=== PATIENT | female | born 1950 | race Caucasian/White ===

== ENCOUNTER → 2018-08-02 | Day surgery (SDC) | payer OTHER, MEDICAID ==
[~2018-08-02] MED LIST: ADVAIR 500-501 EACH INH; ALBUTEROL2.5 MG/31 INH; AMBIEN 10 MG TA10 MG; BENADRYL25 MG PO; CALCIUM MAGNES1 EACH PO; CLARITIN10 MG PO; CLEARLAX17 GM PO; FLEXERIL PO; INCRUSE ELLI62.5 MCG INH; K-DUR 20 MEQ T20 MEQ PO; LEVOXYL125 MCG PO; LOSARTAN-HCTZ1 EACH PO; LOVASTAT20 PO; MAXAIR AUTOHALE14 G1 INH; METAMUCIL1 EAC1 PO; MULTI VITAMIN1 EACH PO; PREMARIN0.3 MG PO; PROAIR RESPICL90 MCG INH; PROTONIX40 M2 PO; SINGULAIR 10 MG10 M1 PO; SPIRIVA INH; SYMBICORT160 MCG/4. INH; VERAPAMIL ER300 MG PO; VERAPAMIL HCL240 M1 PO; VITAMIN D1000 UNI1 PO; ZYRTEC10 M2; [UNRECOGNIZED DRUG - OTHER]; [UNRECOGNIZED DRUG - OTHER] PO; [UNRECOGNIZED DRUG - OTHER] PO
--- NOTE | ~2018-08-02 | PROC ---
[address] [place] [address] PROCEDURE REPORT Name: NESS SIMPSON Room: [facility]..#: [id number] Admission: 08/02/18 Attend Phys: Trace Stanley MD Discharge: Date of : 54 Report #: [id number] THIS REPORT FOR: //name// For GI report, please see the Provation report in Perceptive 7. By: [id number] Records Staff [facility] /ORAL
[2018-08-02 07:04] LABS: HEMATOCRIT 26.1 % (37.0-47.0); HEMOGLOBIN 7.8 gm/dL (12.0-15.0); MCH 20.7 pg (26.0-34.0); MCHC 29.9 g/dL (28.0-37.0); MCV 69.1 fL (80.0-100.0); MPV 8.4 fl. (7.2-11.1); RBC 3.77 mil/uL (4.20-5.00); RDW-CV 29.7 % (10.5-14.5); WBC 4.3 thou/uL (4.0-11.0)
[2018-08-02 07:07] LABS: CALCIUM 8.9 mg/dL (8.5-10.1); CREATININE 0.8 mg/dL (0.6-1.3); POTASSIUM 3.1 mmol/L (3.5-5.1)
--- NOTE | 2018-08-02 16:39 | EKG ---
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 : 1950 Requested By: Trace Stanley Order Number: [id number] MD: Kris David Measurements Intervals [place] Rate: 83 P: 69 ND: 154 QRS: 54 QRSD: 118 T: -18 QT: 457 QTc: 537 Interpretive Statements Sinus rhythm Incomplete right bundle branch block Baseline wander in lead(s) V5,V6 No previous ECG available for comparison Electronically Signed On 08-02-2018 16:39:39 AUTOMOTIVE SERVICE TECHNICIAN by Kris David [email or web address] <ELECTRONICALLY SIGNED> By: Kris David MD, [facility] 08/02/18 1639 3 3 Kris David MD, FAC /EPI
== END | disposition home or self-care (01) ==
LOC: CANPRESDC → M.SUR 05:59
PROVIDERS: Internal Medicine Gastroenterology
DX: K22.8 Other specified diseases of esophagus (principal); K44.9 Diaphragmatic hernia without obstruction or gangrene; K64.4 Residual hemorrhoidal skin tags; Z98.0 Intestinal bypass and anastomosis status; I10 Essential (primary) hypertension; E78.5 Hyperlipidemia, unspecified; E03.9 Hypothyroidism, unspecified; K21.9 Gastro-esophageal reflux disease without esophagitis; Z79.899 Other long term (current) drug therapy; Z98.890 Other specified postprocedural states; Z88.8 Allergy status to other drugs, medicaments and biological substances

== ENCOUNTER → 2019-02-11 | Outpatient (CLI) | payer OTHER, MEDICAID | LOC: M.ULTRA 02-06 10:15 | DX: L72.9 Follicular cyst of the skin and subcutaneous tissue, unspecified (principal); R22.42 Localized swelling, mass and lump, left lower limb ==

== ENCOUNTER 2019-02-20 13:25 | Inpatient (IN) | payer OTHER, MEDICAID ==
[~2019-02-20] VITALS: Ht 160 cm; Wt 99.8 kg
[2019-02-20 13:43] VITALS: BP 190/89
[2019-02-20] MEDS ORDERED: ALLEGRA ALLERG180 MG PO (13:57)
[2019-02-20] MEDS ORDERED: MUCINEX600 MG PO (13:57)
[2019-02-20] MEDS ORDERED: FISH OIL 1,001000 M2 PO (13:57)
[2019-02-20] MEDS ORDERED: SYMBICORT160 MCG/4. INH (13:58)
[2019-02-20] MEDS ORDERED: TRAZODONE HCL50 MG PO (13:58)
[2019-02-20] MEDS ORDERED: SPIRIVA INH (13:58)
[2019-02-20 14:10] LABS: ABSOLUTE BASOPHILS 0.1 thou/uL (0.0-0.2); ABSOLUTE EOSINOPHILS 0.2 thou/uL (0.0-0.7); ABSOLUTE LYMPHOCYTES 1.3 thou/uL (0.8-5.3); ABSOLUTE MONOCYTES 0.5 thou/uL (0.0-1.2); ABSOLUTE NEUTROPHILS 4.3 thou/uL (1.6-8.1); BASOPHILS 1.2 %; EOSINOPHILS 2.7 %; HEMATOCRIT 41.9 % (37.0-47.0); HEMOGLOBIN 13.9 gm/dL (12.0-15.0); LYMPHOCYTES 19.8 %; MCH 29.8 pg (26.0-34.0); MCHC 33.2 g/dL (28.0-37.0); MCV 89.8 fL (80.0-100.0); MONOCYTES 8.6 %; MPV 7.5 fl. (7.2-11.1); NUCLEATED RBCS 0 /100WBC; PLATELET COUNT* 275 thou/uL (150-400); POLYS 67.7 %; RBC 4.67 mil/uL (4.20-5.00); RDW-CV 14.9 % (10.5-14.5); WBC 6.3 thou/uL (4.0-11.0)
[2019-02-20 14:18] LABS: PROTIME 10.4 Seconds (9.20-11.50)
[2019-02-20 14:24] LABS: CALCIUM 9.5 mg/dL (8.5-10.1); CREATININE 0.8 mg/dL (0.6-1.3); POTASSIUM 4.1 mmol/L (3.5-5.1)
[2019-02-20 14:29] LABS: ALBUMIN 3.5 g/dL (3.4-5.0); TOTAL BILIRUBIN 0.4 mg/dL (<0.1-1.0); TOTAL PROTEIN 7.3 g/dL (6.4-8.2)
[2019-02-20 16:34] VITALS: BP 166/81
--- NOTE | 2019-02-20 20:28 | NUR ---
JELANI ARRIVED TO UNIT AT APPROX 1730. ALERT AND ORIENTED X4. ADMISSION HISTORY AND ASSESSMENT COMPLETED AND CHARTED. VSS ON ROOM AIR. NO COMPLAINTS OF PAIN, NAUSEA, OR SOA. PHOTO OF WOUND ON LEFT UPPER ABDONIMAL QUADRANT AND PLACED ON CHART. RED, NON OPEN WOUND ASSESSED ON LUQ. PATIENT IP AD HENRIETTA, ONLY REQUIRES ASSIST WHEN ANTIBIOTICS ARE INFUSING. CALL LIGHT WITHIN REACH. HOURLY ROUNDS. WILL CONTINUE TO MONITOR.
[2019-02-20 21:00] VITALS: BP 142/80
[2019-02-21] MEDS ORDERED: MIRALAX17 GM PO (03:13)
[2019-02-21] MEDS ORDERED: METAMUCIL1 EAC1 PO (03:13)
[2019-02-21] MEDS ORDERED: BENADRYL25 MG PO (03:14)
--- NOTE | 2019-02-21 04:53 | NUR ---
PATIENT HAS REMAINED ALERT AND ORIENTED X 4 THROUGHOUT THE SHIFT AND RESTING AT INTERVALS ON HOURLY ROUNDS. SAFELY UP INDEPENDENTLY IN ROOM DESPITE BLINDNESS. PATIENT WAS IN AGREEMENT TO CALL FOR SBA WHEN CONNECTED TO IV PUMP. VANCOMYCIN INITIATED AT SHIFT CHANGE. DRESSING APPLIED OVER LEFT ABDOMINAL WALL ABSCESS. PATIENT HAS NOT REQUIRED ANYTHING FOR PAIN. VITAL SIGNS STABLE. NPO AT MIDNIGHT. ORDERED FOR HOME MEDS RECEIVED AND PROVIDED. CONTINUE TO MONITOR.
[2019-02-21 08:00] VITALS: BP 161/79
[2019-02-21 10:32] VITALS: BP 148/80
[2019-02-21 12:22] VITALS: BP 148/80
--- NOTE | 2019-02-21 14:46 | NUR ---
WOUND NURSE: PATIENT SEEN TO ADDRESS LESION POST IR AFTER ATTEMPT FOR DRAIN INSERTION, BUT UNSUCCESSFUL. PRESENTS A SMALL LESION MEASURING 0.2 X 0.8 X 0.2 CM DRAINING SMALL AMOUNT OF SANGUINOUS DRAINAGE. THERE IS PERIWOUND REDNESS RADIATING FROM THE CENTER ALONG WITH PINK FRIABLE SKIN. THERE IS NO INDURATION OR WARMTH NOTED. DISCUSSED REFERRAL TO [facility] AND CALLED AND ARRANGED APPT FOR PATIENT TO BE SEEN THERE(WITH HER PERMISSION) NEXT WEDNESDAY 02/28 AT 09:[address] PAULETTE DO. CLEANSED WITH WOUND CLEANSER AND GAUZE, THEN APPLIED AQUACEL AG UNDER BORDERED FOAM DRESSING. PROVIDED INSTRUCTION TO PATIENT'S FRIEND ON DRESSING CHANGE WITH GOOD UNDERSTANDING ACHIEVED.
--- NOTE | 2019-02-21 17:32 | NUR ---
ASSUMED CARE OF PATIENT AT APPROX 0730. ALERT AND ORIENTED X4. ASSESSMENT COMPLETED AND CHARTED. VSS ON ROOM AIR. NO COMPLAINTS OF PAIN, NAUSEA, OR SOA. PATIENT TO IR FOR DRAIN PLACEMENT, RETURNED WITH NO DRAIN. WOUND CARE CONSULT ORDERED, ALTAGRACIA SAW PATIENT TO CLEANED WOUND WITH WOUND CLEANSER, APPLIED AQUACEL AG AND COVERED WITH BORDERED FOAM DRESSING. PATIENT GIVEN 3 DOSES OF VANCOMYCIN IV. SCHEDULED AN APPOINTMENT TO FOLLOW UP IN [facility] ON February. PATIENT DISCHARGED WITH ALL PERSONAL BELONGINGS AND DISCHARGE INSTRUCTIONS.
== END 2019-02-21 17:05 | disposition home or self-care (01) | DRG 394 ==
LOC: M.ERS 13:25 → M.ORTHSURG 15:53 → M.TBA-ER 15:53 → M.ORTHSURG 16:47
PROVIDERS: Emergency Medicine; ADMIT Internal Medicine
PROC: 0WJF3ZZ Inspection of Abdominal Wall, Percutaneous Approach (ICD-10-PCS; principal; 2019-02-21)
DX: K63.2 Fistula of intestine (principal); L02.211 Cutaneous abscess of abdominal wall; J45.909 Unspecified asthma, uncomplicated; K21.9 Gastro-esophageal reflux disease without esophagitis; I10 Essential (primary) hypertension; H40.9 Unspecified glaucoma; H54.7 Unspecified visual loss; E03.9 Hypothyroidism, unspecified; E78.5 Hyperlipidemia, unspecified; S30.821A Blister (nonthermal) of abdominal wall, initial encounter; E66.9 Obesity, unspecified; Z68.39 Body mass index [BMI] 39.0-39.9, adult; Z90.710 Acquired absence of both cervix and uterus; Z88.8 Allergy status to other drugs, medicaments and biological substances

== ENCOUNTER → 2019-03-01 | Outpatient (CLI) | payer OTHER, MEDICAID ==
[~2019-03-01] MED LIST changes: +ALLEGRA ALLERG180 MG PO; +FISH OIL 1,001000 M2 PO; +MIRALAX17 GM PO; +MUCINEX600 MG PO; +TRAZODONE HCL50 MG PO
== END ==
LOC: M.WC 09:00
DX: L02.211 Cutaneous abscess of abdominal wall (principal); E78.5 Hyperlipidemia, unspecified; E03.9 Hypothyroidism, unspecified; E66.01 Morbid (severe) obesity due to excess calories; I10 Essential (primary) hypertension; H40.9 Unspecified glaucoma; H54.7 Unspecified visual loss; J45.909 Unspecified asthma, uncomplicated; K21.9 Gastro-esophageal reflux disease without esophagitis; F32.9 Major depressive disorder, single episode, unspecified; Z68.39 Body mass index [BMI] 39.0-39.9, adult

== ENCOUNTER → 2019-03-07 | Outpatient (CLI) | payer OTHER, MEDICAID | LOC: M.WC 04:41 | DX: L02.211 Cutaneous abscess of abdominal wall (principal); E78.5 Hyperlipidemia, unspecified; E03.9 Hypothyroidism, unspecified; E66.01 Morbid (severe) obesity due to excess calories; H40.9 Unspecified glaucoma; H54.7 Unspecified visual loss; I10 Essential (primary) hypertension; J45.909 Unspecified asthma, uncomplicated; K21.9 Gastro-esophageal reflux disease without esophagitis; F32.9 Major depressive disorder, single episode, unspecified; Z68.39 Body mass index [BMI] 39.0-39.9, adult ==

== ENCOUNTER → 2019-03-14 | Outpatient (CLI) | payer OTHER, MEDICAID | LOC: M.WC 02:03 | DX: L02.211 Cutaneous abscess of abdominal wall (principal); K63.2 Fistula of intestine; E78.5 Hyperlipidemia, unspecified; E03.9 Hypothyroidism, unspecified; E66.01 Morbid (severe) obesity due to excess calories; H40.9 Unspecified glaucoma; H54.7 Unspecified visual loss; I10 Essential (primary) hypertension; J45.909 Unspecified asthma, uncomplicated; K21.9 Gastro-esophageal reflux disease without esophagitis; Z68.39 Body mass index [BMI] 39.0-39.9, adult ==

== ENCOUNTER → 2019-03-21 | Outpatient (CLI) | payer OTHER, MEDICAID | LOC: M.WC 09:30 | DX: L02.211 Cutaneous abscess of abdominal wall (principal); S31.104D Unspecified open wound of abdominal wall, left lower quadrant without penetration into peritoneal cavity, subsequent encounter; E78.5 Hyperlipidemia, unspecified; E03.9 Hypothyroidism, unspecified; E66.01 Morbid (severe) obesity due to excess calories; H40.9 Unspecified glaucoma; H54.7 Unspecified visual loss; I10 Essential (primary) hypertension; J45.909 Unspecified asthma, uncomplicated; K21.9 Gastro-esophageal reflux disease without esophagitis; F32.9 Major depressive disorder, single episode, unspecified; X58.XXXD Exposure to other specified factors, subsequent encounter; Z68.39 Body mass index [BMI] 39.0-39.9, adult ==

== ENCOUNTER → 2019-03-29 | Outpatient (CLI) | payer OTHER, MEDICAID | LOC: M.WC 05:02 | DX: S31.104D Unspecified open wound of abdominal wall, left lower quadrant without penetration into peritoneal cavity, subsequent encounter (principal); L02.211 Cutaneous abscess of abdominal wall; I10 Essential (primary) hypertension; E78.5 Hyperlipidemia, unspecified; E03.9 Hypothyroidism, unspecified; E66.01 Morbid (severe) obesity due to excess calories; H54.40 Blindness, one eye, unspecified eye; K21.9 Gastro-esophageal reflux disease without esophagitis; J45.909 Unspecified asthma, uncomplicated; F32.9 Major depressive disorder, single episode, unspecified; Z68.39 Body mass index [BMI] 39.0-39.9, adult; X58.XXXD Exposure to other specified factors, subsequent encounter ==

== ENCOUNTER → 2019-04-05 | Outpatient (CLI) | payer OTHER, MEDICAID | LOC: M.WC 04:49 | DX: S31.104D Unspecified open wound of abdominal wall, left lower quadrant without penetration into peritoneal cavity, subsequent encounter (principal); L02.211 Cutaneous abscess of abdominal wall; E78.5 Hyperlipidemia, unspecified; E03.9 Hypothyroidism, unspecified; E66.01 Morbid (severe) obesity due to excess calories; H40.9 Unspecified glaucoma; H54.7 Unspecified visual loss; I10 Essential (primary) hypertension; J45.909 Unspecified asthma, uncomplicated; K21.9 Gastro-esophageal reflux disease without esophagitis; F32.9 Major depressive disorder, single episode, unspecified; Z68.39 Body mass index [BMI] 39.0-39.9, adult; X58.XXXD Exposure to other specified factors, subsequent encounter ==

== ENCOUNTER → 2019-04-12 | Outpatient (CLI) | payer OTHER, MEDICAID | LOC: M.WC 05:31 | DX: K63.2 Fistula of intestine (principal); I10 Essential (primary) hypertension; E78.5 Hyperlipidemia, unspecified; E03.9 Hypothyroidism, unspecified; E66.01 Morbid (severe) obesity due to excess calories; H54.40 Blindness, one eye, unspecified eye; K21.9 Gastro-esophageal reflux disease without esophagitis; J45.909 Unspecified asthma, uncomplicated; F32.9 Major depressive disorder, single episode, unspecified; Z68.39 Body mass index [BMI] 39.0-39.9, adult ==

== ENCOUNTER → 2019-04-19 | Outpatient (CLI) | payer OTHER, MEDICAID | LOC: M.WC 05:03 | DX: S31.104D Unspecified open wound of abdominal wall, left lower quadrant without penetration into peritoneal cavity, subsequent encounter (principal); I10 Essential (primary) hypertension; E78.5 Hyperlipidemia, unspecified; E03.9 Hypothyroidism, unspecified; E66.01 Morbid (severe) obesity due to excess calories; K63.2 Fistula of intestine; H54.40 Blindness, one eye, unspecified eye; K21.9 Gastro-esophageal reflux disease without esophagitis; J45.909 Unspecified asthma, uncomplicated; F32.9 Major depressive disorder, single episode, unspecified; Z68.39 Body mass index [BMI] 39.0-39.9, adult; X58.XXXD Exposure to other specified factors, subsequent encounter ==

== ENCOUNTER → 2019-05-17 | Outpatient (CLI) | payer OTHER, MEDICAID | LOC: M.WC 04-26 10:30 | DX: S31.104D Unspecified open wound of abdominal wall, left lower quadrant without penetration into peritoneal cavity, subsequent encounter (principal); L02.211 Cutaneous abscess of abdominal wall; E78.5 Hyperlipidemia, unspecified; E03.9 Hypothyroidism, unspecified; E66.01 Morbid (severe) obesity due to excess calories; H54.7 Unspecified visual loss; H40.9 Unspecified glaucoma; I10 Essential (primary) hypertension; J45.909 Unspecified asthma, uncomplicated; K21.9 Gastro-esophageal reflux disease without esophagitis; F32.9 Major depressive disorder, single episode, unspecified; Z68.39 Body mass index [BMI] 39.0-39.9, adult; X58.XXXD Exposure to other specified factors, subsequent encounter ==

== ENCOUNTER → 2019-05-31 | Outpatient (CLI) | payer OTHER, MEDICAID | LOC: M.WC 04:39 | DX: S31.104D Unspecified open wound of abdominal wall, left lower quadrant without penetration into peritoneal cavity, subsequent encounter (principal); L02.211 Cutaneous abscess of abdominal wall; E78.5 Hyperlipidemia, unspecified; E03.9 Hypothyroidism, unspecified; E66.01 Morbid (severe) obesity due to excess calories; I10 Essential (primary) hypertension; H40.9 Unspecified glaucoma; H54.3 Unqualified visual loss, both eyes; J45.909 Unspecified asthma, uncomplicated; K63.2 Fistula of intestine; K21.9 Gastro-esophageal reflux disease without esophagitis; F32.9 Major depressive disorder, single episode, unspecified; Z68.39 Body mass index [BMI] 39.0-39.9, adult; X58.XXXD Exposure to other specified factors, subsequent encounter ==

== ENCOUNTER → 2019-06-28 | Outpatient (CLI) | payer OTHER, MEDICAID | LOC: M.WC 05:51 | DX: S31.104D Unspecified open wound of abdominal wall, left lower quadrant without penetration into peritoneal cavity, subsequent encounter (principal); L02.211 Cutaneous abscess of abdominal wall; K63.2 Fistula of intestine; E78.5 Hyperlipidemia, unspecified; E03.9 Hypothyroidism, unspecified; E66.01 Morbid (severe) obesity due to excess calories; I86.8 Varicose veins of other specified sites; I10 Essential (primary) hypertension; H54.7 Unspecified visual loss; H40.9 Unspecified glaucoma; J45.909 Unspecified asthma, uncomplicated; K21.9 Gastro-esophageal reflux disease without esophagitis; F32.9 Major depressive disorder, single episode, unspecified; Z68.39 Body mass index [BMI] 39.0-39.9, adult; X58.XXXD Exposure to other specified factors, subsequent encounter ==

== ENCOUNTER → 2019-07-02 | Outpatient (CLI) | payer OTHER, MEDICAID | END | disposition home or self-care (01) | LOC: M.INT 13:38 | DX: K63.2 Fistula of intestine (principal); T81.89XA Other complications of procedures, not elsewhere classified, initial encounter; I10 Essential (primary) hypertension; Z98.890 Other specified postprocedural states; Z88.8 Allergy status to other drugs, medicaments and biological substances; Z79.899 Other long term (current) drug therapy; Y83.8 Other surgical procedures as the cause of abnormal reaction of the patient, or of later complication, without mention of misadventure at the time of the procedure ==

== ENCOUNTER → 2019-07-26 | Outpatient (CLI) | payer OTHER, MEDICAID | LOC: M.WC 09:21 | DX: S31.104D Unspecified open wound of abdominal wall, left lower quadrant without penetration into peritoneal cavity, subsequent encounter (principal); L02.211 Cutaneous abscess of abdominal wall; F41.9 Anxiety disorder, unspecified; J45.909 Unspecified asthma, uncomplicated; I10 Essential (primary) hypertension; E78.5 Hyperlipidemia, unspecified; E03.9 Hypothyroidism, unspecified; E66.01 Morbid (severe) obesity due to excess calories; I83.90 Asymptomatic varicose veins of unspecified lower extremity; H40.9 Unspecified glaucoma; Z68.39 Body mass index [BMI] 39.0-39.9, adult; X58.XXXD Exposure to other specified factors, subsequent encounter ==

== ENCOUNTER → 2019-08-23 | Outpatient (CLI) | payer OTHER, MEDICAID | LOC: M.WC 05:18 | DX: L02.211 Cutaneous abscess of abdominal wall (principal); S31.104D Unspecified open wound of abdominal wall, left lower quadrant without penetration into peritoneal cavity, subsequent encounter; K63.2 Fistula of intestine; I83.90 Asymptomatic varicose veins of unspecified lower extremity; I10 Essential (primary) hypertension; H40.9 Unspecified glaucoma; H54.7 Unspecified visual loss; E78.5 Hyperlipidemia, unspecified; E03.9 Hypothyroidism, unspecified; E66.01 Morbid (severe) obesity due to excess calories; J45.909 Unspecified asthma, uncomplicated; K21.9 Gastro-esophageal reflux disease without esophagitis; F32.9 Major depressive disorder, single episode, unspecified; Z68.39 Body mass index [BMI] 39.0-39.9, adult; X58.XXXD Exposure to other specified factors, subsequent encounter ==

== ENCOUNTER 2019-09-16 12:54 | Emergency (ER) | payer OTHER, MEDICAID ==
[~2019-09-16] VITALS: Ht 160 cm; Wt 100.7 kg
[2019-09-16 16:07] VITALS: BP 118/47
== END 2019-09-16 16:08 | disposition home or self-care (01) ==
LOC: M.ERS 12:54
DX: S80.12XA Contusion of left lower leg, initial encounter (principal); J45.909 Unspecified asthma, uncomplicated; E03.9 Hypothyroidism, unspecified; E78.5 Hyperlipidemia, unspecified; I10 Essential (primary) hypertension; K21.9 Gastro-esophageal reflux disease without esophagitis; Z90.710 Acquired absence of both cervix and uterus; Z88.8 Allergy status to other drugs, medicaments and biological substances; W18.39XA Other fall on same level, initial encounter; Y92.009 Unspecified place in unspecified non-institutional (private) residence as the place of occurrence of the external cause; Y93.89 Activity, other specified; Y99.8 Other external cause status

== ENCOUNTER → 2019-10-31 | Outpatient (CLI) | payer OTHER, MEDICAID | LOC: M.WC 04:55 | DX: S31.104D Unspecified open wound of abdominal wall, left lower quadrant without penetration into peritoneal cavity, subsequent encounter (principal); L03.311 Cellulitis of abdominal wall; E78.5 Hyperlipidemia, unspecified; E03.9 Hypothyroidism, unspecified; E66.01 Morbid (severe) obesity due to excess calories; H40.9 Unspecified glaucoma; H54.7 Unspecified visual loss; I83.90 Asymptomatic varicose veins of unspecified lower extremity; I10 Essential (primary) hypertension; J45.909 Unspecified asthma, uncomplicated; K21.9 Gastro-esophageal reflux disease without esophagitis; X58.XXXD Exposure to other specified factors, subsequent encounter ==

== ENCOUNTER → 2019-11-28 | Outpatient (CLI) | payer OTHER, MEDICAID | LOC: M.WC 01:44 | DX: S31.104D Unspecified open wound of abdominal wall, left lower quadrant without penetration into peritoneal cavity, subsequent encounter (principal); L03.311 Cellulitis of abdominal wall; L02.211 Cutaneous abscess of abdominal wall; E78.5 Hyperlipidemia, unspecified; E03.9 Hypothyroidism, unspecified; E66.01 Morbid (severe) obesity due to excess calories; H40.9 Unspecified glaucoma; H54.7 Unspecified visual loss; I86.8 Varicose veins of other specified sites; I10 Essential (primary) hypertension; J45.909 Unspecified asthma, uncomplicated; F32.9 Major depressive disorder, single episode, unspecified; Z68.39 Body mass index [BMI] 39.0-39.9, adult; X58.XXXD Exposure to other specified factors, subsequent encounter ==

== ENCOUNTER → 2019-12-27 | Outpatient (CLI) | payer OTHER, MEDICAID | LOC: M.WC 05:25 | DX: S31.104D Unspecified open wound of abdominal wall, left lower quadrant without penetration into peritoneal cavity, subsequent encounter (principal); K63.2 Fistula of intestine; I10 Essential (primary) hypertension; I83.93 Asymptomatic varicose veins of bilateral lower extremities; J45.909 Unspecified asthma, uncomplicated; E78.5 Hyperlipidemia, unspecified; E03.9 Hypothyroidism, unspecified; H40.9 Unspecified glaucoma; H54.7 Unspecified visual loss; E66.01 Morbid (severe) obesity due to excess calories; F32.9 Major depressive disorder, single episode, unspecified; Z68.39 Body mass index [BMI] 39.0-39.9, adult; X58.XXXD Exposure to other specified factors, subsequent encounter ==

== ENCOUNTER → 2020-01-31 | Outpatient (CLI) | payer OTHER, MEDICAID ==
[~2020-01-31] MED LIST changes: +IPRATROPIUM BRO30 ML INH; +IRON325 PO; +PROAIR HFA8.5 GM INH
== END ==
LOC: M.WC 01-24 10:30
PROVIDERS: ATTEND Family Medicine
DX: S31.104D Unspecified open wound of abdominal wall, left lower quadrant without penetration into peritoneal cavity, subsequent encounter (principal); K63.2 Fistula of intestine; I83.90 Asymptomatic varicose veins of unspecified lower extremity; H26.9 Unspecified cataract; H40.9 Unspecified glaucoma; J45.909 Unspecified asthma, uncomplicated; I10 Essential (primary) hypertension; E78.5 Hyperlipidemia, unspecified; E03.9 Hypothyroidism, unspecified; E66.01 Morbid (severe) obesity due to excess calories; F32.9 Major depressive disorder, single episode, unspecified; Z68.39 Body mass index [BMI] 39.0-39.9, adult; X58.XXXD Exposure to other specified factors, subsequent encounter

== ENCOUNTER 2020-02-04 12:12 | Emergency (ER) | payer OTHER, MEDICAID ==
[~2020-02-04] VITALS: Ht 160 cm; Wt 98.9 kg
[~2020-02-04 12:12] MED LIST changes: -IPRATROPIUM BRO30 ML INH; -IRON325 PO; -PROAIR HFA8.5 GM INH
[2020-02-04] MEDS ORDERED: CLEARLAX17 GM PO (12:34)
[2020-02-04] MEDS ORDERED: FLEXERIL PO (12:34)
[2020-02-04] MEDS ORDERED: PROAIR HFA8.5 GM INH (12:34)
[2020-02-04] MEDS ORDERED: CLARITIN10 MG PO (12:34)
[2020-02-04] MEDS ORDERED: IPRATROPIUM BRO30 ML INH (12:35)
[2020-02-04] MEDS ORDERED: IRON325 PO (12:41)
[2020-02-04 12:52] LABS: ABSOLUTE BASOPHILS 0.1 thou/uL (0.0-0.2); ABSOLUTE EOSINOPHILS 0.2 thou/uL (0.0-0.7); ABSOLUTE LYMPHOCYTES 1.3 thou/uL (0.8-5.3); ABSOLUTE MONOCYTES 0.7 thou/uL (0.0-1.2); ABSOLUTE NEUTROPHILS 4.3 thou/uL (1.6-8.1); BASOPHILS 1.3 %; EOSINOPHILS 2.5 %; HEMATOCRIT 35.8 % (37.0-47.0); HEMOGLOBIN 11.8 gm/dL (12.0-15.0); LYMPHOCYTES 20.6 %; MCH 24.6 pg (26.0-34.0); MCHC 32.9 g/dL (28.0-37.0); MCV 74.8 fL (80.0-100.0); MONOCYTES 10.2 %; MPV 8.2 fl. (7.2-11.1); NUCLEATED RBCS 0 /100WBC; PLATELET COUNT* 342 thou/uL (150-400); POLYS 65.4 %; RBC 4.78 mil/uL (4.20-5.00); WBC 6.5 thou/uL (4.0-11.0)
[2020-02-04 13:05] LABS: APTT 27.4 Seconds (25.0-31.3); CALCIUM 9.2 mg/dL (8.5-10.1); CREATININE 0.9 mg/dL (0.6-1.3); PROTIME 10.3 Seconds (9.20-11.50)
[2020-02-04 13:16] LABS: ALBUMIN 3.5 g/dL (3.4-5.0); TOTAL BILIRUBIN 0.4 mg/dL (<0.1-1.0); TOTAL PROTEIN 7.6 g/dL (6.4-8.2)
[2020-02-04 14:48] VITALS: BP 189/85
--- NOTE | 2020-02-04 15:28 | EKG ---
[place] [address] ELECTROCARDIOGRAM REPORT Name: NESS SIMPSON Room: [facility]#: [id number] Admission: 02/04/20 Attend Phys: Discharge: 02/04/20 Date of : 54 Date of Service: 02/04/20 1246 Report #: [id number] THIS REPORT FOR: //name// [facility] ED Test Date: 2020-02-04 Test Time: 12:46:17 Pat Name: NESS SIMPSON Department: Room: Gender: [employer] Specialist: : 1950 Requested By: Chloe Villafana Order Number: [id number] MD: Fran Gill Measurements Intervals [place] Rate: 70 P: 73 MD: 146 QRS: 56 QRSD: 123 T: 26 QT: 425 QTc: 459 Interpretive Statements Sinus rhythm Right bundle branch block Baseline wander in lead(s) V6 Compared to ECG 08/02/2018 06:34:14 Right bundle-branch block now present Incomplete right bundle-branch block no longer present Electronically Signed On 02-04-2020 15:27:54 CDT by Fran Gill [email or web address] <ELECTRONICALLY SIGNED> By: Fran Gill MD, FACC 02/04/20 1527 1246 1246 Fran Gill MD, FAC /EPI
== END 2020-02-04 14:40 | disposition home or self-care (01) ==
LOC: M.ERS 12:12
PROVIDERS: Nurse Practitioner Family
DX: D50.9 Iron deficiency anemia, unspecified (principal); J45.909 Unspecified asthma, uncomplicated; I10 Essential (primary) hypertension; E03.9 Hypothyroidism, unspecified; E78.5 Hyperlipidemia, unspecified; K21.9 Gastro-esophageal reflux disease without esophagitis; Z90.710 Acquired absence of both cervix and uterus; Z88.1 Allergy status to other antibiotic agents

== ENCOUNTER → 2020-02-04 | Outpatient (CLI) | payer OTHER, MEDICAID | LOC: M.RAD 15:13 | PROVIDERS: ATTEND Family Medicine | DX: M85.88 Other specified disorders of bone density and structure, other site (principal); Z78.0 Asymptomatic menopausal state ==

== ENCOUNTER → 2020-02-28 | Outpatient (CLI) | payer OTHER, MEDICAID ==
[~2020-02-28] MED LIST changes: +IPRATROPIUM BRO30 ML INH; +IRON325 PO; +PROAIR HFA8.5 GM INH
== END ==
LOC: M.WC 01:24
PROVIDERS: ATTEND Family Medicine
DX: S31.104D Unspecified open wound of abdominal wall, left lower quadrant without penetration into peritoneal cavity, subsequent encounter (principal); K63.2 Fistula of intestine; I83.90 Asymptomatic varicose veins of unspecified lower extremity; I10 Essential (primary) hypertension; J45.909 Unspecified asthma, uncomplicated; H26.9 Unspecified cataract; H40.9 Unspecified glaucoma; E78.5 Hyperlipidemia, unspecified; E03.9 Hypothyroidism, unspecified; E66.01 Morbid (severe) obesity due to excess calories; F32.9 Major depressive disorder, single episode, unspecified; Z68.39 Body mass index [BMI] 39.0-39.9, adult; X58.XXXD Exposure to other specified factors, subsequent encounter

== ENCOUNTER → 2020-03-27 | Outpatient (CLI) | payer OTHER, MEDICAID | LOC: M.WC 01:47 | PROVIDERS: ATTEND Family Medicine | DX: S31.104D Unspecified open wound of abdominal wall, left lower quadrant without penetration into peritoneal cavity, subsequent encounter (principal); E78.5 Hyperlipidemia, unspecified; E03.9 Hypothyroidism, unspecified; E66.01 Morbid (severe) obesity due to excess calories; H40.9 Unspecified glaucoma; H54.7 Unspecified visual loss; I83.90 Asymptomatic varicose veins of unspecified lower extremity; I10 Essential (primary) hypertension; J45.909 Unspecified asthma, uncomplicated; K21.9 Gastro-esophageal reflux disease without esophagitis; F32.9 Major depressive disorder, single episode, unspecified; Z68.39 Body mass index [BMI] 39.0-39.9, adult; K63.2 Fistula of intestine ==

== ENCOUNTER → 2020-05-15 | Outpatient (CLI) | payer OTHER, MEDICAID | LOC: M.WC 00:09 | PROVIDERS: ATTEND Family Medicine | DX: S31.104D Unspecified open wound of abdominal wall, left lower quadrant without penetration into peritoneal cavity, subsequent encounter (principal); L02.211 Cutaneous abscess of abdominal wall; K63.2 Fistula of intestine; I83.90 Asymptomatic varicose veins of unspecified lower extremity; H40.9 Unspecified glaucoma; H26.9 Unspecified cataract; J45.909 Unspecified asthma, uncomplicated; I10 Essential (primary) hypertension; E78.5 Hyperlipidemia, unspecified; E03.9 Hypothyroidism, unspecified; E66.01 Morbid (severe) obesity due to excess calories; F32.9 Major depressive disorder, single episode, unspecified; Z68.39 Body mass index [BMI] 39.0-39.9, adult; X58.XXXD Exposure to other specified factors, subsequent encounter ==

== ENCOUNTER → 2020-06-04 | Outpatient (CLI) | payer OTHER, MEDICAID | LOC: M.WC 08:08 | PROVIDERS: ATTEND Family Medicine | DX: S31.104D Unspecified open wound of abdominal wall, left lower quadrant without penetration into peritoneal cavity, subsequent encounter (principal); I83.90 Asymptomatic varicose veins of unspecified lower extremity; J45.909 Unspecified asthma, uncomplicated; H40.9 Unspecified glaucoma; H26.9 Unspecified cataract; I10 Essential (primary) hypertension; E78.5 Hyperlipidemia, unspecified; E03.9 Hypothyroidism, unspecified; E66.01 Morbid (severe) obesity due to excess calories; F32.9 Major depressive disorder, single episode, unspecified; Z68.39 Body mass index [BMI] 39.0-39.9, adult; X58.XXXD Exposure to other specified factors, subsequent encounter ==

== ENCOUNTER → 2020-07-01 | Outpatient (CLI) | payer OTHER, MEDICAID | LOC: M.MRI 06-22 16:10 → M.CT 14:52 → M.MRI 16:30 | PROVIDERS: ATTEND Family Medicine | DX: M51.17 Intervertebral disc disorders with radiculopathy, lumbosacral region (principal); M47.817 Spondylosis without myelopathy or radiculopathy, lumbosacral region; M46.07 Spinal enthesopathy, lumbosacral region; M25.78 Osteophyte, vertebrae; M48.03 Spinal stenosis, cervicothoracic region; G89.29 Other chronic pain; M48.07 Spinal stenosis, lumbosacral region ==

== ENCOUNTER → 2020-07-02 | Outpatient (CLI) | payer OTHER, MEDICAID | LOC: M.WC 10:28 | PROVIDERS: ATTEND Family Medicine | DX: S31.104D Unspecified open wound of abdominal wall, left lower quadrant without penetration into peritoneal cavity, subsequent encounter (principal); I83.90 Asymptomatic varicose veins of unspecified lower extremity; J45.909 Unspecified asthma, uncomplicated; H40.9 Unspecified glaucoma; H26.9 Unspecified cataract; H54.7 Unspecified visual loss; I10 Essential (primary) hypertension; E78.5 Hyperlipidemia, unspecified; E03.9 Hypothyroidism, unspecified; E66.01 Morbid (severe) obesity due to excess calories; K21.9 Gastro-esophageal reflux disease without esophagitis; F32.9 Major depressive disorder, single episode, unspecified; Z68.39 Body mass index [BMI] 39.0-39.9, adult; X58.XXXD Exposure to other specified factors, subsequent encounter ==

== ENCOUNTER → 2020-07-31 | Outpatient (CLI) | payer OTHER, MEDICAID | LOC: M.WC 07-30 10:30 | PROVIDERS: ATTEND Family Medicine | DX: S31.104D Unspecified open wound of abdominal wall, left lower quadrant without penetration into peritoneal cavity, subsequent encounter (principal); K63.2 Fistula of intestine; I83.90 Asymptomatic varicose veins of unspecified lower extremity; J45.909 Unspecified asthma, uncomplicated; H40.9 Unspecified glaucoma; H26.9 Unspecified cataract; H54.7 Unspecified visual loss; E78.5 Hyperlipidemia, unspecified; I10 Essential (primary) hypertension; E03.9 Hypothyroidism, unspecified; E66.01 Morbid (severe) obesity due to excess calories; K21.9 Gastro-esophageal reflux disease without esophagitis; F32.9 Major depressive disorder, single episode, unspecified; Z68.39 Body mass index [BMI] 39.0-39.9, adult; X58.XXXD Exposure to other specified factors, subsequent encounter ==

== ENCOUNTER → 2020-10-14 | Outpatient (CLI) | payer OTHER, MEDICAID ==
[~2020-10-14] MED LIST changes: +IRON PO; +trazadone PO
== END ==
LOC: M.PC 09:32
PROVIDERS: ATTEND Physical Medicine & Rehabilitation
DX: M50.10 Cervical disc disorder with radiculopathy, unspecified cervical region (principal); M47.22 Other spondylosis with radiculopathy, cervical region

== ENCOUNTER → 2020-10-29 | Outpatient (CLI) | payer OTHER, MEDICAID | LOC: M.RAD 10-14 16:49 → M.MRI 10-21 13:30 → M.RAD 10-21 14:30 → M.MRI 12:48 | PROVIDERS: ATTEND Physical Medicine & Rehabilitation | DX: M43.12 Spondylolisthesis, cervical region (principal); M54.12 Radiculopathy, cervical region ==

== ENCOUNTER → 2020-11-20 | Outpatient (CLI) | payer OTHER, MEDICAID | LOC: M.MRI 13:50 | PROVIDERS: ATTEND Physical Medicine & Rehabilitation | DX: M50.121 Cervical disc disorder at C4-C5 level with radiculopathy (principal); M48.02 Spinal stenosis, cervical region; M47.22 Other spondylosis with radiculopathy, cervical region ==

== ENCOUNTER → 2020-12-16 | Outpatient (CLI) | payer OTHER, MEDICAID | LOC: M.PC 10:03 | PROVIDERS: ATTEND Physical Medicine & Rehabilitation | DX: M47.22 Other spondylosis with radiculopathy, cervical region (principal); M48.02 Spinal stenosis, cervical region; M50.123 Cervical disc disorder at C6-C7 level with radiculopathy; Z79.899 Other long term (current) drug therapy; Z79.891 Long term (current) use of opiate analgesic ==